=== PATIENT | male | born 1970 | race Caucasian/White ===

== ENCOUNTER → 2017-02-23 | Outpatient (CLI) | payer BC | LOC: GMAM 17:36 | PROVIDERS: ATTEND Family Medicine | DX: E07.9 Disorder of thyroid, unspecified (principal); E29.1 Testicular hypofunction; E55.9 Vitamin D deficiency, unspecified; I10 Essential (primary) hypertension ==

== ENCOUNTER → 2017-11-21 | Outpatient (CLI) | payer BC | LOC: GMAM 14:14 | PROVIDERS: ATTEND Family Medicine | DX: E03.9 Hypothyroidism, unspecified (principal); E55.9 Vitamin D deficiency, unspecified; E29.1 Testicular hypofunction ==

== ENCOUNTER → 2018-08-10 | Outpatient (CLI) | payer BC | LOC: GMAM 13:12 | PROVIDERS: ATTEND Family Medicine | DX: E29.1 Testicular hypofunction (principal); E55.9 Vitamin D deficiency, unspecified; Z12.5 Encounter for screening for malignant neoplasm of prostate ==

== ENCOUNTER → 2018-08-20 | Outpatient (CLI) | payer BC | LOC: GMAM 17:46 | PROVIDERS: ATTEND Family Medicine | DX: R77.0 Abnormality of albumin (principal) ==

== ENCOUNTER → 2020-01-13 | Outpatient (CLI) | payer BC | LOC: GMAM 14:34 | PROVIDERS: ATTEND Family Medicine | DX: I10 Essential (primary) hypertension (principal); E03.9 Hypothyroidism, unspecified; R73.9 Hyperglycemia, unspecified; Z12.5 Encounter for screening for malignant neoplasm of prostate; E78.2 Mixed hyperlipidemia; E55.9 Vitamin D deficiency, unspecified ==